=== PATIENT | male | born 1985 | race Caucasian/White ===

== ENCOUNTER 2021-06-25 06:14 | Inpatient (IN) | payer OTHER ==
[2021-06-25] MEDS ORDERED: PIPERACILLIN/TAZOB 3.375 GM 3.375 GM in DEXTROSE 5%-WATER - 50 ML IVPB ONE (06:42)
[2021-06-25] MEDS ORDERED: PIPERACILLIN/TAZOB 3.375 GM 3.375 GM/50 ML BAG IVPB ONE (06:46)
[2021-06-25] MEDS ORDERED: ACETAMINOPHEN 1000 MG/100 ML VIAL IVPB ONE (06:48)
[2021-06-25] MEDS ORDERED: ACETAMINOPHEN INJECTION 100 ML IVPB ONE (07:26)
[2021-06-25] MEDS ORDERED: morphine CARPU-JECT 4 MG/1 ML DISP.SYRIN IVPUSH ONE (07:57)
[2021-06-25] MEDS ORDERED: morphine SULFATE 4 MG/ML VIAL ONE (08:04)
[2021-06-25] MEDS: LACTATED RINGERS SOLUTION 1,000 ML IV SCH (10:00)
[2021-06-25] MEDS ORDERED: ONDANSETRON 4 MG/2 ML VIAL IVPB PRN (10:04)
[2021-06-25] MEDS ORDERED: ACETAMINOPHEN 1000 MG/100 ML VIAL IVPB PRN (10:05)
[2021-06-25 11:41] VITALS: BMI 39.8
[2021-06-26] MEDS: LACTATED RINGERS SOLUTION 1,000 ML IV SCH (06:59)
[2021-06-26 09:35] LABS: BASO % 0.3 % (0-2.0); EOS % 2.1 % (0-4.5); HEMATOCRIT 38.8 % (35.4-49); HEMOGLOBIN 13.5 GM/dL (11.7-16.9); MCH 30.8 pg (25.7-33.7); MCHC 34.9 g/dl (32.0-35.9); MEAN CELL VOLUME 88.2 fl (80-96); MEAN PLT VOLUME 8.2 fl (7.5-11.1); MONO % 11.3 % (3.8-10.2); NEUT % 57.3 % (42.8-82.8); PLATELET COUNT 260 10^3/uL (134-434); RDW 13.7 % (11.9-15.9); WHITE BLOOD COUNT 7.7 K/mm3 (4.0-10.0)
[2021-06-26 09:52] LABS: ALBUMIN 2.9 g/dl (3.4-5.0); BLOOD UREA NITROGEN 8.2 mg/dL (7-18); CALCIUM 8.5 mg/dL (8.5-10.1); MAGNESIUM 2.1 mg/dL (1.8-2.4)
[2021-06-26 09:55] LABS: CREATININE 1.1 mg/dL (0.55-1.3)
[2021-06-26 09:56] LABS: PHOSPHOROUS 3.2 mg/dL (2.5-4.9)
[2021-06-26 09:57] LABS: BILIRUBIN,TOTAL 0.3 mg/dL (0.2-1); TOT PROT 7.1 g/dl (6.4-8.2)
[2021-06-26 14:15] VITALS: BP 130/78; PULSE 69; TEMP 97.9
== END 2021-06-26 17:51 | disposition home or self-care (01) | DRG 249 ==
LOC: JER 06:14 → JERBED 07:03 → J6S 11:08
PROVIDERS: ADMIT Internal Medicine; ATTEND Student in an Organized Health Care Education/Training Program
DX: A09 Infectious gastroenteritis and colitis, unspecified (principal); R74.01 Elevation of levels of liver transaminase levels; R00.0 Tachycardia, unspecified; E66.9 Obesity, unspecified; Z68.39 Body mass index [BMI] 39.0-39.9, adult; K76.0 Fatty (change of) liver, not elsewhere classified
CPT/HCPCS: 36415; 71046-TC-FY; 74177-TC; 80053; 81003; 83605; 83690; 83735; 84100; 85025; 87040; 87045; 87046; 99285-25; C9803; J0131; Q9967; U0003; U0005

== ENCOUNTER 2021-08-28 05:39 | Emergency (ER) | payer OTHER ==
[2021-08-28 07:00] VITALS: BMI 32.3
[2021-08-28] MEDS ORDERED: KETOROLAC TROMETHAMINE 30 MG/1 ML VIAL IM ONE (08:05)
[2021-08-28] MEDS ORDERED: LIDOCAINE 5% TOPICAL PATCH TP ONE (08:05)
[2021-08-28] MEDS ORDERED: LIDOCAINE 5% TOPICAL PATCH ONE (08:38)
[2021-08-28] MEDS ORDERED: KETOROLAC TROMETHAMINE 30 MG/1 ML VIAL ONE (08:38)
[2021-08-28 10:02] VITALS: BP 131/81; PULSE 66; TEMP 98.6
[2021-08-28] MEDS ORDERED: LIDOCAINE PATCH REMOVAL MC ONE (22:00)
== END 2021-08-28 10:03 | disposition home or self-care (01) ==
LOC: JER 05:39
PROC: 3E023GC Introduction of Other Therapeutic Substance into Muscle, Percutaneous Approach (ICD-10-PCS; principal; 2021-08-28)
DX: R07.0 Pain in throat (principal); M54.50 Low back pain, unspecified
CPT/HCPCS: 87804; 87807; 96372; 99284-25; C9803; U0003; U0005

== ENCOUNTER 2021-12-17 03:06 | Emergency (ER) | payer OTHER ==
[2021-12-17 03:27] VITALS: BP 112/73; PULSE 82; TEMP 98.1; BMI 41.6
[2021-12-17 05:03] LABS: EPI CELLS 5 /uL (0-25.1); HYALINE CASTS 0 /uL (0-3.1); PH,URINE 5.5 (5.0-8.0); URINE APPEARANCE CLEAR; URINE BACTERIA 4 /uL (0-1359); URINE BILIRUBIN NEGATIVE (NEGATIVE); URINE COLOR YELLOW; URINE GLUCOSE (UA) NEGATIVE (NEGATIVE); URINE KETONE NEGATIVE (NEGATIVE); URINE LEUK ESTERASE TRACE (NEGATIVE); URINE NITRITE NEGATIVE (NEGATIVE); URINE PROTEIN NEGATIVE (NEGATIVE); URINE RBC 6 /uL (0-23.9); URINE UROBILINOGEN 0.2 mg/dL (0.2-1.0); URINE WBC 22 /uL (0-25.8)
== END 2021-12-17 06:55 | disposition home or self-care (01) ==
LOC: JER 03:06
DX: R68.83 Chills (without fever) (principal)
CPT/HCPCS: 81003; 87804; 99283-25; C9803-CS; U0003; U0005

== ENCOUNTER 2022-07-02 11:14 | Emergency (ER) | payer OTHER ==
[2022-07-02 11:43] VITALS: BP 117/78; PULSE 82; RESP 18; TEMP 97; BMI 42.7
[2022-07-02] MEDS ORDERED: diphenhydrAMINE HCL 50 MG CAPSULE PO ONE (12:30)
[2022-07-02] MEDS ORDERED: predniSONE 20 MG TABLET (UD) PO ONE (12:30)
[2022-07-02] MEDS ORDERED: FAMOTIDINE 20 MG TABLET PO ONE (12:30)
[2022-07-02] MEDS ORDERED: FAMOTIDINE 20 MG TABLET ONE (12:35)
[2022-07-02] MEDS ORDERED: predniSONE 20 MG TABLET (UD) ONE (12:35)
[2022-07-02] MEDS ORDERED: diphenhydrAMINE HCL 25 MG CAPSULE (FP) PO ONE (12:35)
== END 2022-07-02 12:52 | disposition home or self-care (01) ==
LOC: JERFT 11:14 → JER 11:14 → JERFT 12:52
DX: L23.9 Allergic contact dermatitis, unspecified cause (principal)
CPT/HCPCS: 99283-25

== ENCOUNTER 2023-06-11 11:53 | Emergency (ER) | payer SELFPAY ==
[2023-06-11 12:03] VITALS: BP 121/78; PULSE 82; RESP 18; TEMP 9736; BMI 42.3
== END 2023-06-11 13:04 | disposition home or self-care (01) ==
LOC: JERFT 11:53
DX: H68.102 Unspecified obstruction of Eustachian tube, left ear (principal); H61.22 Impacted cerumen, left ear
CPT/HCPCS: 99283-25

== ENCOUNTER 2023-08-20 05:47 | Emergency (ER) | payer OTHER ==
[2023-08-20 06:13] VITALS: BMI 43.5
[2023-08-20] MEDS ORDERED: ALBUTEROL SO4 0.5 % INH SOLN 2.5 MG/0.5 ML VIAL.NEB. NEB ONE ×2 (07:46→08:26)
[2023-08-20] MEDS ORDERED: guaiFENesin 200 MG/10 ML 10 ML UNIT-DOSE CUPS PO ONE (07:46)
[2023-08-20] MEDS ORDERED: ALBUTEROL SO4 0.042% IH SOL 1.25 MG/3 ML VIAL.NEB NEB ONE ×2 (08:24→08:34)
[2023-08-20] MEDS ORDERED: guaiFENesin/D-METHORPHAN HB 10 ML UNIT-DOSE CUPS ONE (08:24)
[2023-08-20] MEDS ORDERED: guaiFENesin/CODEINE 10 ML UNIT-DOSE CUPS PO ONE (08:27)
[2023-08-20] MEDS ORDERED: guaiFENesin/D-METHORPHAN HB 10 ML UNIT-DOSE CUPS PO ONE (08:38)
[2023-08-20 09:50] VITALS: BP 119/78; PULSE 85; RESP 19; TEMP 98.4
== END 2023-08-20 09:36 | disposition home or self-care (01) ==
LOC: JER 05:47
PROC: 3E0F7GC Introduction of Other Therapeutic Substance into Respiratory Tract, Via Natural or Artificial Opening (ICD-10-PCS; principal; 2023-08-20)
DX: R05.2 Subacute cough (principal); R53.1 Weakness; R50.9 Fever, unspecified; J02.9 Acute pharyngitis, unspecified; R11.10 Vomiting, unspecified; J40 Bronchitis, not specified as acute or chronic; Z20.822 Contact with and (suspected) exposure to COVID-19
CPT/HCPCS: 0241U-QW; 71046-TC-FY; 99284-25

== ENCOUNTER 2023-08-24 17:14 | Emergency (ER) | payer OTHER ==
[2023-08-24 17:18] VITALS: BP 135/80; PULSE 90; RESP 20; TEMP 98.4; BMI 43.5
[2023-08-24] MEDS ORDERED: ALBUTEROL SO4 2.5/IPRATROPIUM 0.5 INH SOL 3 ML VIAL.NEB. NEB ONE ×2 (18:19→18:48)
[2023-08-24] MEDS ORDERED: guaiFENesin/D-METHORPHAN HB 10 ML UNIT-DOSE CUPS PO ONE (18:19)
[2023-08-24] MEDS ORDERED: predniSONE 20 MG TABLET (UD) PO ONE (18:19)
[2023-08-24] MEDS ORDERED: guaiFENesin/D-METHORPHAN HB 10 ML UNIT-DOSE CUPS ONE (18:46)
[2023-08-24] MEDS ORDERED: predniSONE 20 MG TABLET (UD) ONE (18:46)
== END 2023-08-24 19:37 | disposition home or self-care (01) ==
LOC: JERFT 17:14 → JER 17:14 → JERFT 19:37
PROC: 3E0F7GC Introduction of Other Therapeutic Substance into Respiratory Tract, Via Natural or Artificial Opening (ICD-10-PCS; principal; 2023-08-24)
DX: J40 Bronchitis, not specified as acute or chronic (principal); R05.9 Cough, unspecified; R07.89 Other chest pain
CPT/HCPCS: 93005; 93010; 99283-25

== ENCOUNTER 2023-12-08 09:09 | Emergency (ER) | payer OTHER ==
[2023-12-08 09:20] VITALS: TEMP 97.7; BMI 41.8
[2023-12-08] MEDS ORDERED: LIDOCAINE 4% PATCH TP ONE (10:37)
[2023-12-08] MEDS ORDERED: KETOROLAC TROMETHAMINE 30 MG/1 ML VIAL ONE (10:37)
[2023-12-08] MEDS ORDERED: AMOX TR/POT CLAV 875MG/125MG TABLETS (FP) ONE (10:37)
[2023-12-08] MEDS: LIDOCAINE 4% PATCH TP ONE (10:46)
[2023-12-08] MEDS: KETOROLAC TROMETHAMINE 30 MG/1 ML VIAL IM ONE (10:46)
[2023-12-08] MEDS: AMOX TR/POT CLAV 875MG/125MG TABLETS (FP) PO ONE (10:46)
[2023-12-08] MEDS: MAG HYDROX/ALH/SMC/DPHA/LIDO 240 ML MOUTHWASH MM SCH (11:33)
[2023-12-08 12:05] VITALS: BP 124/69; PULSE 84; RESP 18
== END 2023-12-08 12:07 | disposition home or self-care (01) ==
LOC: JERFT 09:09
PROC: 3E0333Z Introduction of Anti-inflammatory into Peripheral Vein, Percutaneous Approach (ICD-10-PCS; principal; 2023-12-08)
DX: J02.9 Acute pharyngitis, unspecified (principal); M79.10 Myalgia, unspecified site; M54.2 Cervicalgia; R13.10 Dysphagia, unspecified; R51.9 Headache, unspecified; M54.50 Low back pain, unspecified; R09.81 Nasal congestion; R59.1 Generalized enlarged lymph nodes; Z20.822 Contact with and (suspected) exposure to COVID-19
CPT/HCPCS: 0241U-QW; 87651; 99284-25

== ENCOUNTER 2024-10-16 12:06 | Emergency (ER) | payer OTHER ==
[2024-10-16 12:31] VITALS: BP 125/85; PULSE 89; RESP 17; TEMP 98.4; BMI 38.7
[2024-10-16] MEDS ORDERED: IBUPROFEN 400 MG TABLET (FP) PO ONE (13:13)
[2024-10-16] MEDS: SODIUM CHLORIDE FOR INHALATION 3 ML VIAL.NEB IH ONE (13:27)
[2024-10-16] MEDS: IBUPROFEN 400 MG TABLET (FP) PO ONE (13:27)
[2024-10-16 14:52] LABS: HIV INTERPRETATION NEGATIVE (NEGATIVE)
== END 2024-10-16 14:32 | disposition home or self-care (01) ==
LOC: JERFT 12:06
DX: R05.1 Acute cough (principal); J02.9 Acute pharyngitis, unspecified; Z20.822 Contact with and (suspected) exposure to COVID-19
CPT/HCPCS: 0241U-QW; 36415; 71046-TC-FY; 86803; 87389; 99284-25

== ENCOUNTER 2025-01-03 22:12 | Emergency (ER) | payer OTHER ==
[2025-01-03 22:17] VITALS: BP 135/79; PULSE 95; RESP 20; TEMP 99.3; BMI 29.9
[2025-01-03] MEDS ORDERED: BENZONATATE 200 MG CAPSULE PO ONE (23:04)
[2025-01-03] MEDS ORDERED: IBUPROFEN 400 MG TABLET (FP) PO ONE (23:06)
[2025-01-03] MEDS: BENZONATATE 200 MG CAPSULE PO ONE (23:08)
[2025-01-03] MEDS: IBUPROFEN 400 MG TABLET (FP) PO ONE (23:08)
[2025-01-03] MEDS ORDERED: DEXAMETHASONE 4 MG TABLET (FP) ONE (23:48)
[2025-01-03] MEDS: DEXAMETHASONE 4 MG TABLET (FP) PO ONE (23:49)
== END 2025-01-04 01:29 | disposition home or self-care (01) ==
LOC: JER 22:12
DX: R05.9 Cough, unspecified (principal); J02.9 Acute pharyngitis, unspecified; R50.9 Fever, unspecified
CPT/HCPCS: 0241U-QW; 70360-TC-FY; 87651; 99284-25